=== PATIENT | female | born 1970 | race African-American/Black ===

== ENCOUNTER 2019-04-01 04:10 | Inpatient (IN) | payer OTHER, BC ==
[2019-04-01] MEDS: HYDROCODONE/APAP (5/325) TAB PO (04:51)
[2019-04-01 06:35] LABS: ADD MAN DIFF? NO
[2019-04-01] MEDS: CLINDAMYCIN 900 MG (PMX) 50 ML IVPB (06:35)
[2019-04-01] MEDS: morphine 4 MG/ML VIAL IV (06:35)
[2019-04-01 06:47] LABS: WHITE BLOOD COUNT 7.8 10^3/ul (4.8-10.8)
[2019-04-01 06:47] LABS: BASOPHIL # 0.1 10^3/ul (0.0-0.1); BASOPHILS % 0.6 % (0.0-2.0); EOSINOPHILS # 0.1 10^3/ul (0.0-0.5); EOSINOPHILS % 1.3 % (0.0-7.0); HEMATOCRIT 34.7 % (37.0-47.0); HEMOGLOBIN 10.8 g/dl (12.0-16.0); LYMPHOCYTES # 1.6 10^3/ul (0.8-2.9); LYMPHOCYTES % 20.3 % (15.0-51.0); MEAN CORPUSCULAR HEMOGLOBIN 27.1 pg (29.0-33.0); MEAN CORPUSCULAR HGB CONC 31.1 g/dl (32.0-37.0); MEAN PLATELET VOLUME 9.5 fl (7.4-10.4); MONOCYTE # 0.8 10^3/ul (0.3-0.9); MONOCYTES % 10.2 % (0.0-11.0); NEUTROPHIL # 5.2 10^3/ul (1.6-7.5); NEUTROPHILS % 67.3 % (39.0-77.0); PLATELET COUNT 205 10^3/UL (140-415); RED BLOOD COUNT 3.99 10^6/ul (4.20-5.40); RED CELL DISTRIBUTION WIDTH 13.9 % (11.5-14.5)
[2019-04-01 07:00] LABS: INR 0.96; PROTIME 12.9 Sec (11.9-14.9)
[2019-04-01 07:01] LABS: PARTIAL THROMBOPLASTIN TIME 33.2 Sec (23.0-35.0)
[2019-04-01 07:27] LABS: ALANINE AMINOTRANSFERASE 19 IU/L (13-69); ALBUMIN 3.5 g/dl (3.3-4.9); ALBUMIN/GLOBULIN RATIO 1.25; ALKALINE PHOSPHATASE 56 IU/L (42-121); ANION GAP 5 (5-13); ASPARTATE AMINO TRANSFERASE 18 IU/L (15-46); BILIRUBIN,INDIRECT 0.2 mg/dl (0-1.1); BILIRUBIN,TOTAL 0.2 mg/dl (0.2-1.3); BLOOD UREA NITROGEN 9 mg/dl (7-20); CALCIUM 8.7 mg/dl (8.4-10.2); CARBON DIOXIDE 27 mmol/L (21-31); CHLORIDE 107 mmol/L (97-110); CREATININE 0.59 mg/dl (0.44-1.00); Estimated GFR > 60 mL/min (>60); GLUCOSE 96 mg/dl (70-220); POTASSIUM 3.5 mmol/L (3.5-5.1); SODIUM 139 mmol/L (135-144); TOTAL PROTEIN 6.3 g/dl (6.1-8.1)
[2019-04-01] MEDS ORDERED: ACETAMINOPHEN 325 MG TAB PO ×2 (07:30→10:00)
[2019-04-01] MEDS ORDERED: ONDANSETRON 4 MG INJ IV ×2 (07:30→10:00)
[2019-04-01] MEDS ORDERED: VANCOMYCIN IV PER PHARMACY XX (10:00)
[2019-04-01] MEDS ORDERED: HYDROCODONE/APAP (5/325) TAB PO (10:00)
[2019-04-01] MEDS: PIPER-TAZO 3.375 GM IV (PMX) 100 ML IVPB ×2 (11:30→17:59)
[2019-04-01] MEDS: VANCOMYCIN HCL 2 GM in SOD CHLORIDE 0.9% 500 ML IVPB (13:16)
[2019-04-01] MEDS: SOD CHLORIDE 0.9% 1,000 ML IV (17:59)
[2019-04-01] MEDS: ALBUTEROL/IPRATROPIUM (NEB) 3 ML AMP HHN (19:13)
[2019-04-01] MEDS: morphine 2 MG INJ IV (20:02)
[2019-04-01] MEDS: FAMOTIDINE 20 MG TAB PO (20:57)
[2019-04-02] MEDS: PIPER-TAZO 3.375 GM IV (PMX) 100 ML IVPB ×3 (00:45→11:43)
[2019-04-02] MEDS: VANCOMYCIN 1.25 GM/NS 250 ML 250 ML IVPB ×2 (02:24→12:59)
[2019-04-02] MEDS ORDERED: ALBUTEROL HFA 8 GM INHALER INH (04:00)
[2019-04-02 05:22] LABS: ADD MAN DIFF? NO
[2019-04-02 05:25] LABS: BASOPHILS % 0.4 % (0.0-2.0); EOSINOPHILS # 0.1 10^3/ul (0.0-0.5); HEMATOCRIT 34.8 % (37.0-47.0); LYMPHOCYTES # 1.2 10^3/ul (0.8-2.9); LYMPHOCYTES % 16.5 % (15.0-51.0); MEAN CORPUSCULAR HEMOGLOBIN 27.3 pg (29.0-33.0); MEAN CORPUSCULAR HGB CONC 31.6 g/dl (32.0-37.0); MEAN CORPUSCULAR VOLUME 86.4 fl (82.0-101.0); MEAN PLATELET VOLUME 9.7 fl (7.4-10.4); MONOCYTE # 0.7 10^3/ul (0.3-0.9); MONOCYTES % 9.4 % (0.0-11.0); NEUTROPHIL # 5.3 10^3/ul (1.6-7.5); NEUTROPHILS % 72.4 % (39.0-77.0); PLATELET COUNT 215 10^3/UL (140-415); RED BLOOD COUNT 4.03 10^6/ul (4.20-5.40); RED CELL DISTRIBUTION WIDTH 13.9 % (11.5-14.5)
[2019-04-02 05:25] LABS: WHITE BLOOD COUNT 7.3 10^3/ul (4.8-10.8)
[2019-04-02] MEDS: SOD CHLORIDE 0.9% 1,000 ML IV ×2 (05:47→16:39)
[2019-04-02 05:58] LABS: ANION GAP 4 (5-13); BLOOD UREA NITROGEN 6 mg/dl (7-20); CALCIUM 8.7 mg/dl (8.4-10.2); CARBON DIOXIDE 27 mmol/L (21-31); CHLORIDE 108 mmol/L (97-110); CREATININE 0.68 mg/dl (0.44-1.00); Estimated GFR > 60 mL/min (>60); GLUCOSE 98 mg/dl (70-220); POTASSIUM 3.5 mmol/L (3.5-5.1); SODIUM 139 mmol/L (135-144)
[2019-04-02] MEDS: ALBUTEROL/IPRATROPIUM (NEB) 3 ML AMP HHN ×4 (08:15→20:36)
[2019-04-02] MEDS: FAMOTIDINE 20 MG TAB PO ×2 (08:34→21:08)
[2019-04-02] MEDS: FLUTICASONE/VILANTEROL 100-25 INH (08:34)
[2019-04-02] MEDS: ENOXAPARIN 30 MG/0.3 ML SYG SC (08:35)
[2019-04-02] MEDS: CEFTRIAXONE 1 GM/50 ML (PMX) 50 ML IVPB (16:39)
[2019-04-02] MEDS: morphine 2 MG INJ IV (22:25)
[2019-04-03] MEDS: SOD CHLORIDE 0.9% 1,000 ML IV ×2 (00:45→17:10)
[2019-04-03 01:14] LABS: VANCOMYCIN,TROUGH 10.6 ug/ml (10.0-20.0)
[2019-04-03] MEDS: VANCOMYCIN 1.25 GM/NS 250 ML 250 ML IVPB ×2 (01:33→13:43)
[2019-04-03 07:16] LABS: ADD MAN DIFF? NO
[2019-04-03 07:23] LABS: BASOPHIL # 0.1 10^3/ul (0.0-0.1); BASOPHILS % 0.8 % (0.0-2.0); EOSINOPHILS # 0.1 10^3/ul (0.0-0.5); EOSINOPHILS % 0.8 % (0.0-7.0); HEMATOCRIT 35.5 % (37.0-47.0); HEMOGLOBIN 11.1 g/dl (12.0-16.0); LYMPHOCYTES # 1.2 10^3/ul (0.8-2.9); LYMPHOCYTES % 17.9 % (15.0-51.0); MEAN CORPUSCULAR HEMOGLOBIN 27.1 pg (29.0-33.0); MEAN CORPUSCULAR HGB CONC 31.3 g/dl (32.0-37.0); MEAN CORPUSCULAR VOLUME 86.6 fl (82.0-101.0); MEAN PLATELET VOLUME 9.8 fl (7.4-10.4); MONOCYTE # 0.7 10^3/ul (0.3-0.9); MONOCYTES % 10.6 % (0.0-11.0); NEUTROPHIL # 4.5 10^3/ul (1.6-7.5); NEUTROPHILS % 69.6 % (39.0-77.0); PLATELET COUNT 224 10^3/UL (140-415); RED CELL DISTRIBUTION WIDTH 14.2 % (11.5-14.5)
[2019-04-03 07:23] LABS: WHITE BLOOD COUNT 6.4 10^3/ul (4.8-10.8)
[2019-04-03] MEDS: ALBUTEROL/IPRATROPIUM (NEB) 3 ML AMP HHN ×3 (08:00→19:44)
[2019-04-03] MEDS: FAMOTIDINE 20 MG TAB PO ×2 (08:46→20:09)
[2019-04-03] MEDS: ENOXAPARIN 30 MG/0.3 ML SYG SC (08:46)
[2019-04-03] MEDS: FLUTICASONE/VILANTEROL 100-25 INH (08:46)
[2019-04-03] MEDS ORDERED: ALBUTEROL 0.083% (NEB) 2.5 MG/3 ML AMP HHN (10:30)
[2019-04-03] MEDS ORDERED: ONDANSETRON 4 MG INJ IV (10:30)
[2019-04-03] MEDS ORDERED: FENTAnyl 50 MCG/ML VIAL IV ×3 (10:30→13:30)
[2019-04-03] MEDS: ONDANSETRON 4 MG INJ IV (13:04)
[2019-04-03] MEDS: HYDROmorphONE 1 MG/5 ML IV SYRINGE IV ×3 (13:05→13:22)
[2019-04-03] MEDS: METOCLOPRAMIDE 10 MG INJ IV (13:08)
[2019-04-03] MEDS: DIPHENHYDRAMINE 50 MG INJ IV (13:17)
[2019-04-03] MEDS: MEPERIDINE 25 MG INJ IV (13:18)
[2019-04-03] MEDS: FENTAnyl 50 MCG/ML VIAL IV (13:37)
[2019-04-03] MEDS: CEFTRIAXONE 1 GM/50 ML (PMX) 50 ML IVPB (17:10)
[2019-04-03] MEDS: morphine 2 MG INJ IV (20:12)
[2019-04-04] MEDS: VANCOMYCIN 1.25 GM/NS 250 ML 250 ML IVPB ×2 (00:50→13:57)
[2019-04-04] MEDS: ACETAMINOPHEN 325 MG TAB PO ×2 (07:04→20:25)
[2019-04-04] MEDS: SOD CHLORIDE 0.9% 1,000 ML IV (07:05)
[2019-04-04] MEDS: ALBUTEROL/IPRATROPIUM (NEB) 3 ML AMP HHN ×3 (07:44→19:46)
[2019-04-04] MEDS: FAMOTIDINE 20 MG TAB PO ×2 (09:52→20:24)
[2019-04-04] MEDS: FLUTICASONE/VILANTEROL 100-25 INH (09:55)
[2019-04-04] MEDS: morphine 2 MG INJ IV (15:27)
[2019-04-04] MEDS: CEFTRIAXONE 1 GM/50 ML (PMX) 50 ML IVPB (16:52)
[2019-04-04] MEDS: MINERAL OIL 30ML CUP PO (20:24)
[2019-04-04] MEDS: MAGNESIUM HYDROXIDE 30ML CUP PO (20:24)
[2019-04-04] MEDS ORDERED: MINERAL OIL 30ML CUP PO (21:00)
[2019-04-05] MEDS: VANCOMYCIN 1.25 GM/NS 250 ML 250 ML IVPB ×2 (01:07→13:16)
[2019-04-05 05:00] LABS: WHITE BLOOD COUNT 5.8 10^3/ul (4.8-10.8)
[2019-04-05 05:00] LABS: ADD MAN DIFF? NO
[2019-04-05 05:01] LABS: BASOPHILS % 0.7 % (0.0-2.0); EOSINOPHILS # 0.1 10^3/ul (0.0-0.5); EOSINOPHILS % 1.4 % (0.0-7.0); HEMOGLOBIN 10.8 g/dl (12.0-16.0); LYMPHOCYTES # 1.2 10^3/ul (0.8-2.9); LYMPHOCYTES % 21.3 % (15.0-51.0); MEAN CORPUSCULAR HEMOGLOBIN 27.9 pg (29.0-33.0); MEAN CORPUSCULAR HGB CONC 32.7 g/dl (32.0-37.0); MEAN CORPUSCULAR VOLUME 85.3 fl (82.0-101.0); MEAN PLATELET VOLUME 9.5 fl (7.4-10.4); MONOCYTE # 0.6 10^3/ul (0.3-0.9); NEUTROPHIL # 3.8 10^3/ul (1.6-7.5); NEUTROPHILS % 65.4 % (39.0-77.0); PLATELET COUNT 213 10^3/UL (140-415); RED BLOOD COUNT 3.87 10^6/ul (4.20-5.40); RED CELL DISTRIBUTION WIDTH 13.7 % (11.5-14.5)
[2019-04-05 05:25] LABS: ANION GAP 4 (5-13); BLOOD UREA NITROGEN 5 mg/dl (7-20); CALCIUM 8.8 mg/dl (8.4-10.2); CARBON DIOXIDE 28 mmol/L (21-31); CHLORIDE 107 mmol/L (97-110); Estimated GFR > 60 mL/min (>60); GLUCOSE 102 mg/dl (70-220); POTASSIUM 3.7 mmol/L (3.5-5.1); SODIUM 139 mmol/L (135-144)
[2019-04-05] MEDS: FLUTICASONE/VILANTEROL 100-25 INH (08:42)
[2019-04-05] MEDS: FAMOTIDINE 20 MG TAB PO ×2 (08:42→20:35)
[2019-04-05] MEDS: ENOXAPARIN 30 MG/0.3 ML SYG SC (08:43)
[2019-04-05] MEDS: MINERAL OIL 30ML CUP PO ×3 (08:44→20:35)
[2019-04-05] MEDS: ALBUTEROL/IPRATROPIUM (NEB) 3 ML AMP HHN ×3 (08:55→20:14)
[2019-04-05] MEDS: CEFTRIAXONE 1 GM/50 ML (PMX) 50 ML IVPB (16:46)
[2019-04-05] MEDS: MAGNESIUM HYDROXIDE 30ML CUP PO (20:35)
[2019-04-05] MEDS: GUAIFENESIN/DM 5ML CUP PO (23:04)
[2019-04-06] MEDS: VANCOMYCIN 1.25 GM/NS 250 ML 250 ML IVPB ×2 (00:55→13:18)
[2019-04-06] MEDS: ALBUTEROL/IPRATROPIUM (NEB) 3 ML AMP HHN ×3 (08:12→19:16)
[2019-04-06] MEDS: FAMOTIDINE 20 MG TAB PO ×3 (09:00→20:38)
[2019-04-06] MEDS: FLUTICASONE/VILANTEROL 100-25 INH (09:16)
[2019-04-06] MEDS: MINERAL OIL 30ML CUP PO ×2 (09:16→13:00)
[2019-04-06] MEDS: ENOXAPARIN 30 MG/0.3 ML SYG SC (09:17)
[2019-04-06] MEDS: HYDROCODONE/APAP (5/325) TAB PO ×2 (13:19→20:38)
[2019-04-06] MEDS: DOXYCYCLINE 100 MG TAB PO ×2 (16:10→21:33)
[2019-04-06] MEDS: ONDANSETRON 4 MG INJ IV (17:34)
[2019-04-07] MEDS: FLUTICASONE/VILANTEROL 100-25 INH (08:19)
[2019-04-07] MEDS: DOXYCYCLINE 100 MG TAB PO (08:19)
[2019-04-07] MEDS: ENOXAPARIN 30 MG/0.3 ML SYG SC (08:19)
[2019-04-07] MEDS: FAMOTIDINE 20 MG TAB PO (08:19)
[2019-04-07] MEDS: ONDANSETRON 4 MG INJ IV (08:25)
[2019-04-07] MEDS: ALBUTEROL/IPRATROPIUM (NEB) 3 ML AMP HHN ×2 (08:43→14:00)
== END 2019-04-07 19:04 | disposition home or self-care (01) | DRG 580 ==
LOC: E/R 04:10 → PP2 07:01
PROC: 07B50ZX Excision of Right Axillary Lymphatic, Open Approach, Diagnostic (ICD-10-PCS; principal; 2019-04-03 10:30)
PROC: 0HBT0ZZ Excision of Right Breast, Open Approach (ICD-10-PCS; 2019-04-03 10:30)
DX: N61.0 Mastitis without abscess (principal); R65.10 Systemic inflammatory response syndrome (SIRS) of non-infectious origin without acute organ dysfunction; C50.911 Malignant neoplasm of unspecified site of right female breast; E66.9 Obesity, unspecified; Z68.33 Body mass index [BMI] 33.0-33.9, adult
CPT/HCPCS: 80048; 80053; 80202; 85025; 85610; 85730; 87040-91; 87081; 88307; 94640; 94664; 96374; 96375; 99285-25

== ENCOUNTER 2019-04-11 05:14 | Emergency (ER) | payer OTHER ==
[2019-04-11 06:12] LABS: ADD MAN DIFF? NO
[2019-04-11] MEDS: HYDROmorphONE 1 MG/ML SYG IV (06:12)
[2019-04-11] MEDS: ONDANSETRON 4 MG INJ IV (06:12)
[2019-04-11 06:19] LABS: WHITE BLOOD COUNT 5.4 10^3/ul (4.8-10.8)
[2019-04-11 06:19] LABS: BASOPHIL # 0.1 10^3/ul (0.0-0.1); BASOPHILS % 1.5 % (0.0-2.0); EOSINOPHILS # 0.1 10^3/ul (0.0-0.5); EOSINOPHILS % 1.9 % (0.0-7.0); HEMATOCRIT 35.8 % (37.0-47.0); HEMOGLOBIN 11.2 g/dl (12.0-16.0); LYMPHOCYTES # 1.5 10^3/ul (0.8-2.9); LYMPHOCYTES % 27.1 % (15.0-51.0); MEAN CORPUSCULAR HEMOGLOBIN 28.2 pg (29.0-33.0); MEAN CORPUSCULAR HGB CONC 31.3 g/dl (32.0-37.0); MEAN CORPUSCULAR VOLUME 90.2 fl (82.0-101.0); MEAN PLATELET VOLUME 9.2 fl (7.4-10.4); MONOCYTE # 0.6 10^3/ul (0.3-0.9); MONOCYTES % 10.7 % (0.0-11.0); NEUTROPHIL # 3.1 10^3/ul (1.6-7.5); NEUTROPHILS % 58.6 % (39.0-77.0); PLATELET COUNT 289 10^3/UL (140-415); RED BLOOD COUNT 3.97 10^6/ul (4.20-5.40); RED CELL DISTRIBUTION WIDTH 13.8 % (11.5-14.5)
[2019-04-11] MEDS: CEFEPIME 1GM/50 ML (PMX) 50 ML IVPB (06:42)
[2019-04-11 06:43] LABS: ALANINE AMINOTRANSFERASE 26 IU/L (13-69); ALBUMIN 4.1 g/dl (3.3-4.9); ALBUMIN/GLOBULIN RATIO 1.13; ALKALINE PHOSPHATASE 87 IU/L (42-121); ANION GAP 8 (5-13); ASPARTATE AMINO TRANSFERASE 32 IU/L (15-46); BILIRUBIN,INDIRECT 0.1 mg/dl (0-1.1); BILIRUBIN,TOTAL 0.1 mg/dl (0.2-1.3); BLOOD UREA NITROGEN 12 mg/dl (7-20); CALCIUM 8.8 mg/dl (8.4-10.2); CARBON DIOXIDE 27 mmol/L (21-31); CHLORIDE 106 mmol/L (97-110); CREATININE 0.67 mg/dl (0.44-1.00); Estimated GFR > 60 mL/min (>60); GLUCOSE 100 mg/dl (70-220); SODIUM 141 mmol/L (135-144); TOTAL PROTEIN 7.7 g/dl (6.1-8.1)
[2019-04-11] MEDS: VANCOMYCIN 1 GM (PMX) 250 ML IVPB (07:16)
== END 2019-04-11 09:30 | disposition home or self-care (01) ==
LOC: E/R 05:14
DX: G89.18 Other acute postprocedural pain (principal); J45.909 Unspecified asthma, uncomplicated; C50.911 Malignant neoplasm of unspecified site of right female breast; Z90.11 Acquired absence of right breast and nipple
CPT/HCPCS: 36415; 76642; 80053; 85025; 87040-91; 96365; 96366; 96367; 96375; 99285-25